=== PATIENT | male | born 1955 | race Caucasian/White ===

== ENCOUNTER → 2020-06-03 | Day surgery (SDC) | payer OTHER ==
[~2020-06-03] VITALS: Ht 180.3 cm; Wt 90.7 kg
[~2020-06-03] MED LIST: DICLOFENAC SODI75 MG PO; PROTONIX 40MG T40 MG PO
== END | disposition home or self-care (01) ==
LOC: FAS 06:54
DX: Z12.11 Encounter for screening for malignant neoplasm of colon (principal); K29.50 Unspecified chronic gastritis without bleeding; K29.80 Duodenitis without bleeding; K31.7 Polyp of stomach and duodenum; K44.9 Diaphragmatic hernia without obstruction or gangrene; K20.90 Esophagitis, unspecified without bleeding; K22.2 Esophageal obstruction; K57.30 Diverticulosis of large intestine without perforation or abscess without bleeding; K63.5 Polyp of colon; Z20.822 Contact with and (suspected) exposure to COVID-19; M19.90 Unspecified osteoarthritis, unspecified site
CPT/HCPCS: J2704; J7120

== ENCOUNTER → 2020-09-05 | Day surgery (SDC) | payer OTHER ==
[~2020-09-05] VITALS: Ht 180.3 cm; Wt 90.7 kg
[2020-09-05 12:16] LABS: HGB 14.9 g/dl (13.2-18.0); MCH 31.4 pg (25.0-31.0); MCHC 34.7 g/dL (32.0-36.0); MCV 90.5 fL (78.0-100.0); MPV 9.6 fL (6.0-9.5); RBC 4.75 M/uL (4.70-6.00); WBC 4.9 K/uL (4.0-10.5)
== END | disposition home or self-care (01) ==
LOC: FAS 10:27
PROVIDERS: Legal Medicine
DX: G56.02 Carpal tunnel syndrome, left upper limb (principal); K21.9 Gastro-esophageal reflux disease without esophagitis; Z79.899 Other long term (current) drug therapy
CPT/HCPCS: 36415; J0690; J1100; J1885; J2250; J2405; J2795; J3010; J7120

== ENCOUNTER 2021-03-03 11:20 | Emergency (ER) | payer OTHER | END 2021-03-03 13:03 | disposition home or self-care (01) | LOC: FER 11:20 | DX: S02.2XXA Fracture of nasal bones, initial encounter for closed fracture (principal); W22.8XXA Striking against or struck by other objects, initial encounter; Y92.89 Other specified places as the place of occurrence of the external cause; Y99.0 Civilian activity done for income or pay | CPT/HCPCS: 70486 ==